=== PATIENT | female | born 1955 | race Caucasian/White ===

== ENCOUNTER 2021-02-04 21:04 | Inpatient (IN) ==
[2021-02-04 23:14] LABS: Basophils # 0.1 K/mcL (0.0-0.2); Basophils % 0.7 %; Eosinophils % 0.1 %; Hematocrit 40.7 % (35.3-44.9); Immature Granulocytes % 3.6 % (0-4); Lymphocytes # 0.9 K/mcL (0.6-4.6); Lymphocytes % 6.2 %; Mean Corpuscular HGB Conc 31.9 g/dL (31.6-35.5); Mean Corpuscular Hemoglobin 31.3 pg (28.0-33.3); Mean Corpuscular Volume 97.8 fL (83.0-100.0); Mean Platelet Volume 9.5 fL (9.4-12.4); Monocytes # 0.9 K/mcL (0.0-1.3); Monocytes % 5.8 %; Neutrophils # 12.6 K/mcL (1.6-8.9); Nucleated Red Blood Cells 2.4 /100 WBC (0); Platelet Count 260 K/mcL (140-400); Red Blood Count 4.16 M/mcL (3.82-4.97); Red Cell Distribution Width 17.8 % (11.5-14.5); Segmented Neutrophils % 83.6 %; White Blood Count 15.1 K/mcL (4.3-11.1)
[2021-02-04 23:19] LABS: Bilirubin,Urine Negative (Negative); Blood,Urine Trace-lysed (Negative); Clarity,Urine Clear (Clear); Color,Urine Yellow (Yellow); Glucose,Urine (UA) Normal (Normal); Ketones,Urine Negative (Negative); Leukocyte Esterase,Urine Large (Negative); Nitrite,Urine Negative (Negative); Protein,Urine Negative (Neg-Trace); Specific Gravity,Urine 1.015 (1.010-1.025); Urobilinogen,Urine Normal (Normal)
[2021-02-04 23:23] LABS: INR 1.2; Prothrombin Time 13.9 Seconds (9.4-12.1)
[2021-02-04 23:24] LABS: ABG Base Excess 8 mEq/L (-2 to 3); ABG HCO3 35 mEq/L (21-27); ABG Oxygen Saturation 92 % (95-98); ABG PCO2 56 mmHg (35-45); ABG PO2 67 mmHg (85-104); ABG TCO2 36 mEq/L (20-26)
[2021-02-04 23:25] LABS: Bacteria,Urine Few per hpf (None-Few); RBC,Urine 0-3 per hpf (0-3); Renal Epithelial Cells,Urine Few per hpf (None-Few); Squamous Epithelial Cell,Urine Few per hpf (None-Few)
[2021-02-04 23:26] LABS: Activated Partial Thrombo Time 31.1 Seconds (26.0-36.0)
[2021-02-04 23:35] LABS: Amphetamine Screen,Urine Negative ng/mL (Cutoff=1000); Barbiturate Screen,Urine Negative ng/mL (Cutoff=200); Benzodiazepines Screen,Urine Negative ng/mL (Cutoff=200); Cannabinoid Screen,Urine Negative ng/mL (Cutoff = 50); Cocaine Screen,Urine Negative ng/mL (Cutoff= 300); Opiate Screen,Urine Positive ng/mL (Cutoff=300); Phencyclidine Screen,Urine Negative ng/mL (Cutoff=25); Troponin I < 0.03 ng/mL (< 0.04)
[2021-02-04 23:36] LABS: Alanine Aminotransferase 35 Units/L (7-52); Albumin 3.6 g/dL (3.5-5.7); Albumin/Globulin Ratio 1.4 (1.1-2.2); Alkaline Phosphatase 148 Units/L (34-104); Aspartate Amino Transferase 19 Units/L (13-39); BUN/Creatinine Ratio 14 (6-26); Bilirubin,Direct 0.2 mg/dL (0.0-0.2); Bilirubin,Indirect 0.3 mg/dL (0.0-1.0); Bilirubin,Total 0.5 mg/dL (0.3-1.0); Blood Urea Nitrogen 7 mg/dL (8-23); Carbon Dioxide 39 mEq/L (23-29); Chloride 89 mEq/L (98-107); Ethanol < 10 mg/dL (Less than 10); Globulin 2.5 g/dL (2.4-3.5); Glucose 137 mg/dL (70-105); Osmolality,Calculated 274 (280-300); Potassium 4.3 mEq/L (3.5-5.1); Sodium 132 mEq/L (136-145); Total Protein 6.1 g/dL (6.4-8.9); eGFR For African Americans > 60 (> 60); eGFR For Non-African Americans > 60 (> 60)
[2021-02-04] MEDS ORDERED: Furosemide 40 MG/4 ML VIAL IVP ONE (23:55)
[2021-02-05] MEDS ORDERED: levoFLOXacin 500 MG/100 ML 500 MG/100 ML BAG IVPB ONE (07:26)
[2021-02-05] MEDS ORDERED: Ibuprofen 400 MG TABLET PO PRN (09:21)
[2021-02-05] MEDS ORDERED: Ondansetron 4 MG/2 ML VIAL IVP PRN (09:21)
[2021-02-05] MEDS ORDERED: Mag Hydrox/Al Hydrox/Simeth 30 ML UDC PO PRN (09:21)
[2021-02-05] MEDS ORDERED: Melatonin 3 MG TABLET PO PRN (09:21)
[2021-02-05] MEDS ORDERED: Ondansetron ODT 4 MG TAB.RAPDIS SL PRN (09:21)
[2021-02-05] MEDS ORDERED: Naloxone 0.4 MG/ML INJ IVP PRN (09:21)
[2021-02-05] MEDS ORDERED: Acetaminophen 325 MG TABLET PO PRN (09:21)
[2021-02-05] MEDS ORDERED: MOM Conc 10 ML UD.LIQ PO PRN (09:21)
[2021-02-05] MEDS ORDERED: NON-FORMULARY MEDICATION 1 EACH EACH (Ondansetron Hcl [Zofran] 4 MG Tablet) PO PRN (09:32)
[2021-02-05] MEDS ORDERED: Carisoprodol 350 MG TABLET PO PRN (09:32)
[2021-02-05] MEDS ORDERED: Magic Mouthwash 10 ML UD Cup PO PRN (09:32)
[2021-02-05] MEDS ORDERED: traZODone 50 MG TABLET PO PRN (09:32)
[2021-02-05] MEDS ORDERED: *HR* HYDROcodone/Acet 7.5/325 mg TABLET PO PRN (09:32)
[2021-02-05] MEDS ORDERED: Perflutren Lipid Microsphere 1.3 ML in 0.9 % Sodium Chloride 8.7 ML IVP PRN (14:03)
[2021-02-05 15:29] LABS: Hematocrit 44.4 % (35.3-44.9); Hemoglobin 13.7 g/dL (11.5-15.4); Mean Corpuscular HGB Conc 30.9 g/dL (31.6-35.5); Mean Corpuscular Hemoglobin 31.4 pg (28.0-33.3); Mean Corpuscular Volume 101.6 fL (83.0-100.0); Mean Platelet Volume 9.3 fL (9.4-12.4); Platelet Count 244 K/mcL (140-400); Red Blood Count 4.37 M/mcL (3.82-4.97); Red Cell Distribution Width 18.4 % (11.5-14.5); White Blood Count 12.3 K/mcL (4.3-11.1)
[2021-02-05 15:59] LABS: BUN/Creatinine Ratio 12 (6-26); Blood Urea Nitrogen 7 mg/dL (8-23); Calcium 9.2 mg/dL (8.6-10.3); Carbon Dioxide 42 mEq/L (23-29); Chloride 86 mEq/L (98-107); Glucose 205 mg/dL (70-105); Magnesium 2.2 mg/dL (1.6-2.6); Osmolality,Calculated 276 (280-300); Potassium 3.9 mEq/L (3.5-5.1); Sodium 131 mEq/L (136-145); eGFR For African Americans > 60 (> 60); eGFR For Non-African Americans > 60 (> 60)
[2021-02-05] MEDS: dexAMETHasone 4 MG TABLET PO SCH (20:00)
[2021-02-05] MEDS: amLODIPine 5 MG TABLET PO SCH (20:01)
[2021-02-05] MEDS: Furosemide 20 MG/2 ML VIAL IVP SCH (20:06)
[2021-02-05] MEDS ORDERED: OLANZapine 5 MG TAB.RAPDIS PO SCH (21:00)
[2021-02-05] MEDS ORDERED: Furosemide 40 MG/4 ML VIAL IVP SCH (21:00)
[2021-02-06 05:59] LABS: Basophils # 0.1 K/mcL (0.0-0.2); Basophils % 0.4 %; Hematocrit 42.8 % (35.3-44.9); Hemoglobin 13.2 g/dL (11.5-15.4); Immature Granulocytes % 2.1 % (0-4); Lymphocytes # 0.6 K/mcL (0.6-4.6); Lymphocytes % 4.7 %; Mean Corpuscular HGB Conc 30.8 g/dL (31.6-35.5); Mean Corpuscular Hemoglobin 31.2 pg (28.0-33.3); Mean Corpuscular Volume 101.2 fL (83.0-100.0); Mean Platelet Volume 9.5 fL (9.4-12.4); Monocytes # 0.3 K/mcL (0.0-1.3); Monocytes % 2.5 %; Nucleated Red Blood Cells 0.7 /100 WBC (0); Platelet Count 231 K/mcL (140-400); Red Blood Count 4.23 M/mcL (3.82-4.97); Red Cell Distribution Width 18.3 % (11.5-14.5); Segmented Neutrophils % 90.3 %; White Blood Count 11.8 K/mcL (4.3-11.1)
[2021-02-06 06:10] LABS: Neutrophils # 10.7 K/mcL (1.6-8.9)
[2021-02-06 07:00] LABS: Alanine Aminotransferase 26 Units/L (7-52); Albumin 3.1 g/dL (3.5-5.7); Alkaline Phosphatase 134 Units/L (34-104); Aspartate Amino Transferase 18 Units/L (13-39); BUN/Creatinine Ratio 19 (6-26); Bilirubin,Total 0.4 mg/dL (0.3-1.0); Blood Urea Nitrogen 8 mg/dL (8-23); Carbon Dioxide 41 mEq/L (23-29); Chloride 90 mEq/L (98-107); Glucose 207 mg/dL (70-105); Osmolality,Calculated 286 (280-300); Phosphorous 3.5 mg/dL (2.7-4.5); Potassium 3.8 mEq/L (3.5-5.1); Sodium 136 mEq/L (136-145); Total Protein 6.1 g/dL (6.4-8.9); eGFR For African Americans > 60 (> 60); eGFR For Non-African Americans > 60 (> 60)
[2021-02-06] MEDS: Furosemide 20 MG/2 ML VIAL IVP SCH (07:38)
[2021-02-06] MEDS ORDERED: levoFLOXacin 500 MG/100 ML 500 MG/100 ML BAG IVPB SCH (09:00)
[2021-02-06] MEDS ORDERED: NON-FORMULARY MEDICATION 1 EACH EACH (Tiotropium Br/Olodaterol Hcl [Stiolto Respimat Inhal PO SCH (09:00)
[2021-02-06] MEDS ORDERED: Metoprolol XL (24 HR) Succ 50 MG TAB.ER.24H PO SCH (09:00)
[2021-02-06] MEDS ORDERED: acetaZOLAMIDE 250 MG TABLET PO SCH (09:00)
[2021-02-06] MEDS ORDERED: Loratadine 10 MG TABLET PO SCH (09:00)
[2021-02-06] MEDS ORDERED: Tiotropium 10 INH DOSE IH SCH (10:00)
[2021-02-06] MEDS: dexAMETHasone 4 MG TABLET PO SCH (10:15)
[2021-02-06] MEDS: amLODIPine 5 MG TABLET PO SCH (10:15)
[2021-02-06] MEDS ORDERED: Ipratropium/Albuterol Neb 3 ML IH SCH (19:00)
[2021-02-06 19:29] VITALS: BP 109/75; PULSE 143; TEMP 97.4
[2021-02-06 19:54] VITALS: RESP 18; O2SAT 96
[2021-02-07] MEDS ORDERED: *HR* Enoxaparin 30 MG/0.3 ML SYRINGE SQ SCH (06:00)
== END 2021-02-06 20:25 | disposition short-term general hospital (02) | DRG 91 ==
LOC: EMEROOGRE 21:04 → INPGRE 21:04
PROVIDERS: ADMIT Family Medicine; ATTEND Family Medicine